=== PATIENT | female | born 1955 | race Caucasian/White ===

== ENCOUNTER → 2017-02-19 | Outpatient (CLI) | payer BC, MEDICARE ==
--- NOTE | 2017-02-19 21:12 | CT ---
EXAMINATION TYPE: CT abdomen pelvis w con DATE OF EXAM: 02/19/2017 COMPARISON: NONE HISTORY: Abdominal pain x2 weeks. Hx of diverticulitis CT DLP: 744.4 mGycm Automated exposure control for dose reduction was used. TECHNIQUE: Helical acquisition of images was performed from the lung bases through the pelvis. CONTRAST: Performed with Oral Contrast and with IV Contrast, patient injected with 100 mL of Omnipaque 300. FINDINGS: Lung bases are clear. There is no pleural effusion. Heart size is normal. There is some decreased density in the liver consistent with fatty infiltration. There is no focal li vasquez defect. Bile ducts are not dilated. Gallbladder is absent. Spleen and pancreas appear normal. There is no adrenal mass. Kidneys have normal size and contour. There is satisfactory contrast opacif ication. There is no hydronephrosis. Ureters are not dilated. There is no retroperitoneal adenopathy. Appendix appears normal. Bladder distends smoothly. There is no ascites. There are multiple small div erticula in the sigmoid colon. There is no sign of diverticulitis. I see no bony destructive process. IMPRESSION: FATTY INFILTRATION OF THE LIVER. MILD SIGMOID DIVERTICULOSIS. NO SIGN OF ACUTE ABDOMEN AND PELVIS.
== END | disposition home or self-care (01) ==
LOC: RADCTMAIN 19:21
PROVIDERS: ATTEND Family Medicine
DX: K57.30 Diverticulosis of large intestine without perforation or abscess without bleeding (principal); K76.0 Fatty (change of) liver, not elsewhere classified
CPT/HCPCS: 74177; Q9967

== ENCOUNTER → 2018-01-19 | Outpatient (CLI) | payer BC, MEDICARE ==
--- NOTE | 2018-01-19 12:19 | CT ---
EXAMINATION TYPE: CT soft tissue neck w con DATE OF EXAM: 01/19/2018 HISTORY: Pt c/o sensation like something is caught in throat COMPARISON: CT cervical spine dated 12/29/2012 CT DLP: 302.3 mGycm. Automated Exposure Control for Dose Reduction was Utilized. TECHNIQUE: CT scan of the neck is performed with IV Contrast, patient injected with 100 mL of Isovue 300, axial images are obtained, coronal and sagittal reformatted images are reviewed. FINDINGS: Airway: Airway is patent. Valleculae and piriform sinuses are symmetric. Fossa of Rosenmuller and Tor us tubarius are unremarkable. True and false vocal cords are symmetric. Parotid/submandibular glands: Symmetric without surrounding inflammatory change. Carotid/Vascular Structures: No hemodynamically significant stenosis within the visualized carotid or vertebral vasculature of the neck. There is a conventional three-vessel branch pattern of the aortic arch. Osseous Structures: Very mild multilevel degenerative changes of the cervical spine are noted as smal l disc bulge at C5-C6 and small anterior osteophytes at C4-C5 and C5-C6. Osseous structures appear in tact. Other: Thyroid gland is unremarkable on CT. IMPRESSION: No CT finding to correspond to the patient's globus sensation.
== END | disposition home or self-care (01) ==
LOC: RADCTMAIN 10:23
PROVIDERS: ATTEND Otolaryngology
DX: R22.1 Localized swelling, mass and lump, neck (principal)
CPT/HCPCS: 82565; 84520; 70491; 36415; Q9967

== ENCOUNTER → 2018-02-20 | Outpatient (CLI) | payer BC, MEDICARE | END | disposition home or self-care (01) | LOC: LABWHC1 11:25 | PROVIDERS: ATTEND Otolaryngology | DX: J30.89 Other allergic rhinitis (principal) | CPT/HCPCS: 36415; 86001 ==

== ENCOUNTER → 2018-04-24 | Outpatient (CLI) | payer BC, MEDICARE ==
--- NOTE | 2018-04-24 14:39 | CT ---
EXAMINATION TYPE: CT abdomen w con DATE OF EXAM: 04/24/2018 COMPARISON: 02/19/2017 HISTORY: LLQ abdomen pain, abnormal results from function studies. Sx Hx appy, lumpectomy LT breast, partial hysterectomy, bladder mesh. Hx diverticulitis. CT DLP: 677 mGycm CONTRAST: CT scan of the abdomen and pelvis is performed with Oral Contrast and with IV Contrast, patient injec chai with 100 mL of Isovue 300. FINDINGS: LUNG BASES-: No visible nodule. No infiltrate. LIVER/GB: Mild fatty liver noted. The gallbladder surgically absent. No space occupying hepatic lesio n. Biliary tree is of normal caliber. PANCREAS: No inflammation. No distinct mass. SPLEEN: No splenic enlargement. No lesion seen. ADRENALS: No nodule. No thickening. KIDNEYS/BLADDER: No hydronephrosis. No nephrolithiasis. No distinct renal mass. Urinary bladder g rossly unremarkable. BOWEL: Normal appendix. Normal bowel caliber. There is partially imaged sigmoid diverticulosis. Mild stranding is noted adjacent to the left psoas musculature may reflect underlying diverticulitis oropeza vasquez the examination should include the pelvis. GENITAL ORGANS: No gross abnormality. LYMPH NODES: No greater than 1cm abdominal or pelvic lymph nodes are appreciated. AORTA: No significant abnormality. OSSEOUS STRUCTURES: No significant abnormality is seen. OTHER: No significant additional abnormality is seen. IMPRESSION: 1. There is partially imaged sigmoid diverticulosis. Mild stranding is noted adjacent to the left pso as musculature may reflect underlying diverticulitis however the examination should include the pelvi s.
== END ==
LOC: RADCTMAIN 12:25
PROVIDERS: ATTEND Family Medicine
DX: K57.30 Diverticulosis of large intestine without perforation or abscess without bleeding (principal)
CPT/HCPCS: 74160; 36415; Q9967

== ENCOUNTER → 2020-05-16 | Outpatient (CLI) | payer BC, MEDICARE ==
--- NOTE | 2020-05-16 14:11 | XR ---
EXAMINATION TYPE: XR knee limited RT DATE OF EXAM: 05/16/2020 COMPARISON: NONE HISTORY: Pain TECHNIQUE: Three views are submitted. FINDINGS: There is narrowing along the medial compartment of the knee joint. No hypertrophic spurring or erosiv e changes.. Osseous structures are intact. No acute fracture seen. Mild diffuse osteopenia. IMPRESSION: 1. No acute fracture or dislocation. 2. Osteoarthritis.
== END | disposition home or self-care (01) ==
LOC: RADXRMAIN 13:38
PROVIDERS: ATTEND Family Medicine
DX: M17.11 Unilateral primary osteoarthritis, right knee (principal)

== ENCOUNTER → 2021-06-12 | Outpatient (CLI) | payer BC, MEDICARE ==
--- NOTE | 2021-06-12 12:47 | MR ---
EXAMINATION TYPE: MR lumbar spine wo con DATE OF EXAM: 06/12/2021 COMPARISON: Lumbar spine x-ray April 02, 2021. Lumbar spine MRI July 10, 2011 HISTORY: Low back pain TECHNIQUE: Multiplanar, multisequence imaging of the lumbar spine is performed without IV contrast. FINDINGS: Sagittal images of the lumbar spine show vertebral body heights and alignment to appear sat isfactory. Multilevel disc desiccation but the disc space heights are maintained. The conus medullar is is stable in position and signal ending superior L1 level. The bone marrow signal intensity remai ns within normal limits. Axial images show T12-L1, L1-L2, and L2-L3 levels all to appear within normal limits. Axial images at L3-L4 level shows mild facet arthropathy bilaterally effacing posterolateral spinal c anal. The Bilateral neural foramina are patent. Axial images at L4-L5 levels mild to moderate facet degenerative changes and ligamentum flavum hypert rophy effacing posterolateral spinal canal. There is mild broad disc bulge minimally effaces the ante rior thecal sac. Patent bilateral neural foramina. Axial images at the L5-S1 level show mild to moderate facet arthropathy bilaterally. Tiny central dis c protrusion but spinal canal is preserved bilateral neural foramina are patent. No suspicious incidental retroperitoneal findings seen. IMPRESSION: Mild to moderate degenerative changes mid to lower lumbar spine as detailed above. No sig nificant change or progression from 2012 MRI.
== END | disposition home or self-care (01) ==
LOC: RADMRIMAIN 11:30
PROVIDERS: ATTEND Orthopaedic Surgery
DX: M47.897 Other spondylosis, lumbosacral region (principal)
CPT/HCPCS: 72148